=== PATIENT | female | born 1945 | race Two or more races ===

== ENCOUNTER 2022-02-18 08:25 | Inpatient (IN) | payer MEDICARE, OTHER ==
[~2022-02-18] VITALS: Ht 157.5 cm; Wt 44.5 kg
--- NOTE | 2022-02-18 08:35 | NUR ---
TO ER BED 8, MASSIEL FROM [facility] FOR ABNORMAL LABS, BUN 69, SODIUM 160, CDIFF+, AAOX2, BREATHING EVEN AND NON LABORED, CHANGED INTO A GOWN, CONNECTED TO MONITOR. AWAITING MD ORDERS
--- NOTE | 2022-02-18 08:42 | NUR ---
IV ESTABLISHED L AC 20G. LABS AND CULTURES DRAWN AND COLLLECTED AT BEDSIDE
--- NOTE | 2022-02-18 08:45 | NUR ---
COVID ANTIGEN TEST COLLECTED AND SENT AT BEDSIDE
[2022-02-18 08:52] LABS: BASOPHILS # (AUTO) 0.1 K/uL (0.0-0.2); BASOPHILS % (AUTO) 0.4 % (0.0-2.0); EOSINOPHILS % (AUTO) 1.1 % (0.0-6.0); HEMATOCRIT 38 % (33-45); HEMOGLOBIN 11.7 g/dL (11.5-14.8); LYMPHOCYTES # (AUTO) 2.3 K/uL (0.8-4.8); LYMPHOCYTES % (AUTO) 11.9 % (20.0-44.0); MEAN CORPUSCULAR HGB CONC 31 g/dl (31.0-36.0); MEAN CORPUSCULAR VOLUME 88 fL (82-100); MONOCYTES # (AUTO) 1.3 K/uL (0.1-1.30); MONOCYTES % (AUTO) 6.6 % (2.0-12.0); NEUTROPHILS # (AUTO) 15.5 K/uL (1.8-8.9); PLATELET COUNT (AUTO) 647 K/uL (150-450); RED BLOOD CELL COUNT(AUTO) 4.32 MIL/uL (4.0-5.2); WHITE BLOOD COUNT (AUTO) 19.4 K/uL (4.3-11.0)
[2022-02-18 09:00] LABS: CALCIUM, SERUM 8.5 mg/dL (8.5-10.1); CARBON DIOXIDE 24 mmol/L (21-32); CHLORIDE 125 mmol/L (98-107); CREATININE 1.9 mg/dL (0.6-1.3); GLUCOSE 105 mg/dL (74-106); UREA NITROGEN, BLOOD 70 mg/dL (7-18)
[2022-02-18] MEDS ORDERED: IV NS 0.9% 500 ML BAG IV ONE (09:00)
[2022-02-18] MEDS ORDERED: VANC500V PO (09:03)
[2022-02-18] MEDS ORDERED: METO50TA16 PO (09:03)
[2022-02-18] MEDS ORDERED: ATOR20TA PO (09:03)
[2022-02-18] MEDS ORDERED: LOSA100T31 PO (09:03)
[2022-02-18] MEDS ORDERED: LEVE500T9 PO (09:03)
[2022-02-18] MEDS ORDERED: ASPI-1169 PO (09:03)
[2022-02-18] MEDS ORDERED: SERT100T12 PO (09:03)
[2022-02-18] MEDS ORDERED: CLOP75TA15 PO (09:03)
[2022-02-18] MEDS ORDERED: NYST5ORA MM (09:03)
[2022-02-18 09:06] LABS: ALANINE AMINOTRANSFERASE 139 U/L (12-78); ALBUMIN 2.8 g/dL (3.4-5.0); ALKALINE PHOSPHATASE 122 U/L (46-116); ASPARTATE AMINOTRANSFERASE 98 U/L (15-37); BILIRUBIN,DIRECT 0.1 mg/dL (0.0-0.2); BILIRUBIN,TOTAL 0.3 mg/dL (0.2-1.0); SODIUM SERUM 162 mmol/L (136-145); TOTAL PROTEIN, SERUM 7.5 g/dL (6.4-8.2)
--- NOTE | 2022-02-18 09:13 | NUR ---
16 FR COREY CATHETER IN PLACE. 40CC OF URINE OUTPUT. URINE COLLECTED AND SENT TO LAB.
[2022-02-18 09:51] LABS: BILIRUBIN,URINE NEGATIVE (NEGATIVE); COLOR,URINE YELLOW (YELLOW); LEUKOCYTE ESTERASE ,URINE NEGATIVE (NEGATIVE); NITRITE, URINE NEGATIVE (NEGATIVE); PH,URINE 6.5 (5.0-8.0); PROTEIN,URINE 30 mg/dl (NEGATIVE); UGLUCOSE NEGATIVE (NEGATIVE); UROBILINOGEN,URINE 0.2 EU/dL (0.2)
[2022-02-18 10:03] LABS: BACTERIA,URINE 2+ /HPF (None Seen)
--- NOTE | 2022-02-18 10:06 | NUR ---
DR CLIFFORD AT BEDSIDE FOR EVAL
--- NOTE | 2022-02-18 10:30 | NUR ---
COVID POSITIVE PER LAB. DR VINCENT AWARE.
[2022-02-18] MEDS ORDERED: Z GUARD REMEDY 4 OZ OINT TP PRN (12:00)
[2022-02-18] MEDS: METOPROLOL TARTRATE 50 MG TABLET PO SCH ×2 (12:00→20:54)
[2022-02-18] MEDS ORDERED: ONDANSETRON HCL/PF 4 MG/2 ML VIAL IVP PRN (12:00)
[2022-02-18] MEDS ORDERED: HYDROCODONE/APAP 5/325MG TABLET PO PRN (12:00)
[2022-02-18] MEDS ORDERED: ACETAMINOPHEN 325 MG TABLET PO PRN (12:00)
[2022-02-18] MEDS ORDERED: IV NS 0.9% 1,000 ML IV PRN (12:00)
--- NOTE | 2022-02-18 12:49 | NUR ---
ROOM [facility]
--- NOTE | 2022-02-18 12:56 | NUR ---
REPORT GIVEN TO JORGE FOR ADRIÁN
[2022-02-18] MEDS ORDERED: CEFTRIAXONE 1 G in IV D5W 50 ML IV ONE (13:00)
--- NOTE | 2022-02-18 14:00 | NUR ---
ADMISSION RN FOUND PT IN BED, REPORT GIVEN OVER PHONE. PT IS A&OX0, NO SOCIABLE BEHAVIOR. PT COMBATIVE, WITHDRAWING FROM NON PAINFUL STIMULUS. PT PLACED ON THE MONITOR, PROVIDED FRESH LINENS. RN WILL START ADMISSION PROCESS JULIO.
[2022-02-18] MEDS ORDERED: hydrALAZINE HCL IV 20 MG VIAL IV PRN (14:30)
[2022-02-18] MEDS: [UNRECOGNIZED DRUG - OTHER] PO SCH ×3 (15:03→20:55)
[2022-02-18] MEDS: VANCOMYCIN HCL 125 MG/2.5 ML ORAL.SUSP PO SCH ×2 (15:03→18:03)
--- NOTE | 2022-02-18 16:00 | NUR ---
RN NOTES RN INFORMED DR CLIFFORD THAT PT WAS ATTEMPTING TO STRIKE RNMD GAVE ORDERS: APPLY SOFT RESTRAINTS. RN ACKNOWLEDGED AND WILL EXECUTE ORDERS.
--- NOTE | 2022-02-18 19:10 | NUR ---
RN NOTES RECEIVED REPORT FROM MORNING NURSE. PATIENT IN BED CONFUSED. WITH IV ACCESS ON RFA G#22 PATENT FLUSHES WELL. WITH COREY CATHETER CONNECTED TO URINE BAG DRAINING YELLOWISH URINE OUTPUT. WITH FLEXISEAL IN PLACE. PATIENT IS WITH BILATERAL WRIST RESTRAINTS IN PLACE. PATIENT IS PULLING OUT HER IV LINES. ON ISLOTAION DUE TO COVID + AND C-DIFF. VITAL SIGNS TAKEN AND RECORDED. ALL SAFETY MEASURES IN PLACE AT ALL TIMES. HOB ELEVATED. CALL LIGHT WITHIN REACH. BED ON LOWEST POSITION AND LOCKED. WILL CLOSELY MONITOR THE PATIENT
--- NOTE | 2022-02-18 19:15 | NUR ---
RN NOTES PT FOUND SUPINE DISPLAYING NO S/S OF DISTRESS, FLACC = 0 AND BREATHING EVEN AND UNLABORED ON RA. PREVIOUSLY PULLED OUT IV REPLACED ON R FA. FLEXISEAL IN PLACE, RESERVOIR BELOW PATIENT DRAINING BY GRAVITY. COREY CATH RESERVOIR BELOW PATIENT DRAINING BY GRAVITY. BILATERAL SOFT WRISTS APPLIED, PULSES PALPATED AND CAP REFILL < 3 SECONDS BILATERALLY. SBAR AND REPORT GIVEN TO CASE ASSISTANT RN, ALL QUESTIONS ANSWERED. SAFETY MEASURES IN PLACE, BED LOCKED AND IN LOWEST POSITION, SIDE RAILS UPX3, CALL LIGHT WITHIN REACH, BED ALARM ARMED.
[2022-02-18 20:00] VITALS: BP 116/62
[2022-02-18] MEDS: LEVETIRACETAM (250 MG) 250 MG TABLET PO SCH (20:47)
[2022-02-18] MEDS: HEPARIN SODIUM, PORCINE 5000 UNITS/1 ML VIAL SQ SCH (20:50)
[2022-02-18] MEDS: ATORVASTATIN 10 MG TABLET PO SCH (21:25)
[2022-02-19] VITALS: BP 106/68
[2022-02-19] MEDS: VANCOMYCIN HCL 125 MG/2.5 ML ORAL.SUSP PO SCH ×5 (00:10→23:31)
[2022-02-19 04:00] VITALS: BP 108/67
--- NOTE | 2022-02-19 06:50 | NUR ---
RN NOTES PATIENT REMAINS STABLE NO SIGNIFICANT CHANGES IN HEALTH CONDITION THIS SHIFT. STILL WITH IV ON RFA ON CONTINUOS IVF NS @ 100CC/HR. WITH COREY CATHETER CONNECTED TO URINE BAG DRAINING WELL. WITJ FLEXI SEAL IN PLACE. STILL WITH BILATERAL SOFT RESTRAINTS IN PLACE. FREQUENT VISUAL MONITORING RENDERED. ALL DUE MEDS GIVEN ORDERED. WILL ENDORSED TO MORNING SHIFT FOR ADRIÁN.
[2022-02-19 07:08] LABS: BASOPHILS # (AUTO) 0.1 K/uL (0.0-0.2); BASOPHILS % (AUTO) 0.3 % (0.0-2.0); EOSINOPHILS % (AUTO) 0.8 % (0.0-6.0); HEMATOCRIT 35 % (33-45); HEMOGLOBIN 10.7 g/dL (11.5-14.8); LYMPHOCYTES # (AUTO) 2.2 K/uL (0.8-4.8); MEAN CORPUSCULAR HGB CONC 30 g/dl (31.0-36.0); MEAN CORPUSCULAR VOLUME 91 fL (82-100); MONOCYTES # (AUTO) 1.4 K/uL (0.1-1.30); MONOCYTES % (AUTO) 6.7 % (2.0-12.0); NEUTROPHILS # (AUTO) 16.5 K/uL (1.8-8.9); NEUTROPHILS % (AUTO) 81.2 % (43.0-81.0); PLATELET COUNT (AUTO) 549 K/uL (150-450); RED BLOOD CELL COUNT(AUTO) 3.88 MIL/uL (4.0-5.2); WHITE BLOOD COUNT (AUTO) 20.3 K/uL (4.3-11.0)
--- NOTE | 2022-02-19 07:30 | NUR ---
FELT PULLER AM NOTES PT IN BED, PATIENT IN BED CONFUSED. ON ROOM AIR SPO2 96%, RESPIRATION UNLABORED, SR HR 68 ON MONITOR, NO SIGNS OF PAIN OR DISCOMFORT, WITH IV ACCESS ON RFA G#22 PATENT FLUSHES WELL. NS AT 100 ML/HR INFUSING WELL. SITE CLEAR. HAS BILATERAL WRIST RESTRAINTS IN PLACE. RELEASED AND CHECKED CIRCULATION THEN Q 2 HOURS. SEE NURSING FLOWSHEET FOR SKIN ISSUES.ISOLATION PRECAUTION FOR COVID + AND C-DIFF. ON PUREED DIET, FEEDER, SAFETY MEASURES IN PLACE AT ALL TIMES. HOB ELEVATED. CALL LIGHT WITHIN REACH. BED ON LOWEST POSITION AND LOCKED. WILL CLOSELY MONITOR THE PATIENT
[2022-02-19 07:37] LABS: CALCIUM, SERUM 8.4 mg/dL (8.5-10.1); CARBON DIOXIDE 21 mmol/L (21-32); CREATININE 1.6 mg/dL (0.6-1.3); GLUCOSE 93 mg/dL (74-106); MAGNESIUM 3.2 mg/dL (1.8-2.4); PHOSPHORUS 4.3 mg/dL (2.5-4.9); POTASSIUM 3.4 mmol/L (3.5-5.1); UREA NITROGEN, BLOOD 61 mg/dL (7-18)
[2022-02-19 07:53] LABS: CHLORIDE 131 mmol/L (98-107); SODIUM SERUM 166 mmol/L (136-145)
[2022-02-19 08:00] VITALS: BP 142/71
[2022-02-19] MEDS: SERTRALINE HCL 50 MG TABLET PO SCH (08:34)
[2022-02-19] MEDS: ASPIRIN 81 MG TAB.CHEW PO SCH (08:34)
[2022-02-19] MEDS: PANTOPRAZOLE 40 MG TABLET.DR PO SCH (08:35)
[2022-02-19] MEDS: LEVETIRACETAM (250 MG) 250 MG TABLET PO SCH ×2 (08:35→22:21)
[2022-02-19] MEDS: METOPROLOL TARTRATE 50 MG TABLET PO SCH ×2 (08:35→22:21)
[2022-02-19] MEDS: CLOPIDOGREL BISULFATE 75 MG TABLET PO SCH (08:35)
[2022-02-19] MEDS: HEPARIN SODIUM, PORCINE 5000 UNITS/1 ML VIAL SQ SCH ×2 (08:36→22:29)
[2022-02-19] MEDS: [UNRECOGNIZED DRUG - OTHER] PO SCH ×4 (08:52→22:24)
--- NOTE | 2022-02-19 09:30 | NUR ---
RN NOTES DUE MEDS GIVEN
[2022-02-19 11:55] LABS: CHOLESTEROL 105 mg/dL (<200); HDL CHOLESTEROL 30 mg/dL (40-60); LDL 45 mg/dL (0-99); TRIGLYCERIDES 229 mg/dL (30-150)
[2022-02-19 12:00] VITALS: BP 128/71
[2022-02-19] MEDS ORDERED: POTASSIUM CHLORIDE 10 MEQ TABLET.SA PO SCH (12:00)
[2022-02-19] MEDS: ENSURE ENLIVE 237 ML LIQUID (VANILLA) PO SCH ×2 (12:41→16:37)
[2022-02-19] MEDS: LEVOTHYROXINE SODIUM 50 MCG TABLET PO SCH ×2 (14:42→22:20)
[2022-02-19 16:00] VITALS: BP 131/62
[2022-02-19] MEDS: IV 1/2NS 1000 ML 1,000 ML IV PRN (16:36)
--- NOTE | 2022-02-19 19:19 | NUR ---
OFFICE MESSENGER HELPER CLOSING NOTES PATIENT IN BED CONFUSED. RESTING EYES CLOSED. ON ROOM AIR SPO2 92%, RESPIRATION UNLABORED, SR SHERRY 53 ON MONITOR, NO SIGNS OF PAIN OR DISCOMFORT, WITH IV ACCESS ON RFA G#22 PATENT FLUSHES WELL. 1/2 NS AT 100 ML/HR INFUSING WELL. SITE CLEAR. HAS BILATERAL WRIST RESTRAINTS IN PLACE. RELEASED AND CHECKED CIRCULATION Q 2 HOURS. ISOLATION PRECAUTION FOR COVID + AND C-DIFF. ON PUREED DIET, FEEDER, FLEXISEAL IN PLACE WITH 50 ML OUTPUT. COREY CATH WITH IN PLACE, TOTAL OUTPUT 200ML. SAFETY MEASURES IN PLACE AT ALL TIMES. HOB ELEVATED. CALL LIGHT WITHIN REACH. BED ON LOWEST POSITION AND LOCKED. TURNED AND REPOSITIONED Q 2 HOURS. ALL NEEDS MET. WILL ENDORE TO NEXT SHIFT FOR ADRIÁN.
--- NOTE | 2022-02-19 19:48 | NUR ---
SHRIMP CLEANER OPENING NOTES RECEIVED PATIENT IN BED, A/O X1 CONFUSED. ON RA, TOLERATING WELL, NO SOB NOTED AT THIS TIME, ON TELE MONITORING, NOTED WITH IV ACCESS ON RFA G#22 INTACT AND PATENT. WITH COREY CATHETER CONNECTED TO URINE BAG DRAINING YELLOWISH COLORED URINE. WITH FLEXISEAL IN PLACE. PATIENT NOTED WITH BILATERAL WRIST RESTRAINTS IN PLACE. PATIENT IS PULLING OUT HER IV LINES. ON ISOLATION DUE TO COVID + AND C-DIFF. VITAL SIGNS TAKEN AND RECORDED. ALL SAFETY MEASURES IN PLACE AT ALL TIMES. HOB ELEVATED. CALL LIGHT WITHIN REACH. BED ON LOWEST POSITION AND LOCKED. WILL CLOSELY MONITOR THE PATIENT
[2022-02-19 20:00] VITALS: BP 115/52
[2022-02-19] MEDS: ATORVASTATIN 10 MG TABLET PO SCH (22:21)
[2022-02-20] VITALS: BP 147/64
[2022-02-20] MEDS: IV 1/2NS 1000 ML 1,000 ML IV PRN ×2 (03:45→17:34)
[2022-02-20 04:00] VITALS: BP 150/73
[2022-02-20] MEDS: VANCOMYCIN HCL 125 MG/2.5 ML ORAL.SUSP PO SCH ×4 (05:32→23:28)
[2022-02-20 06:51] LABS: BASOPHILS % (AUTO) 0.2 % (0.0-2.0); EOSINOPHILS % (AUTO) 1.4 % (0.0-6.0); HEMATOCRIT 33 % (33-45); LYMPHOCYTES # (AUTO) 2.3 K/uL (0.8-4.8); LYMPHOCYTES % (AUTO) 11.7 % (20.0-44.0); MEAN CORPUSCULAR HGB CONC 30 g/dl (31.0-36.0); MEAN CORPUSCULAR VOLUME 91 fL (82-100); MONOCYTES # (AUTO) 1.4 K/uL (0.1-1.30); MONOCYTES % (AUTO) 7.2 % (2.0-12.0); NEUTROPHILS # (AUTO) 15.4 K/uL (1.8-8.9); NEUTROPHILS % (AUTO) 79.5 % (43.0-81.0); PLATELET COUNT (AUTO) 472 K/uL (150-450); RED BLOOD CELL COUNT(AUTO) 3.66 MIL/uL (4.0-5.2); WHITE BLOOD COUNT (AUTO) 19.3 K/uL (4.3-11.0)
--- NOTE | 2022-02-20 07:23 | NUR ---
SLURRY PLANT OPERATOR CLOSING NOTES PATIENT REMAINS IN BED, A/O X1 CONFUSED. ON RA, TOLERATING WELL, NO SOB NOTED AT THIS TIME, ON TELE MONITORING CURRENTLY READING SHERRY AT 29 BPM, IV ACCESS ON RFA G#22 INTACT AND PATENT. WITH COREY CATHETER CONNECTED TO URINE BAG DRAINING YELLOWISH COLORED URINE. WITH FLEXISEAL IN PLACE. WITH BILATERAL WRIST RESTRAINTS IN PLACE. PATIENT PULLING OUT HER IV LINES. ON ISOLATION DUE TO COVID + AND C-DIFF. VITAL SIGNS TAKEN AND RECORDED. ALL DUE MEDS GIVEN. HOB ELEVATED. CALL LIGHT WITHIN REACH. BED ON LOWEST POSITION AND LOCKED. WILL ENDORSE TO AM SHIFT NURSE.
[2022-02-20 07:34] LABS: ALBUMIN 2.3 g/dL (3.4-5.0); BILIRUBIN,TOTAL 0.2 mg/dL (0.2-1.0); CALCIUM, SERUM 7.9 mg/dL (8.5-10.1); CREATININE 1.3 mg/dL (0.6-1.3); MAGNESIUM 2.8 mg/dL (1.8-2.4); PHOSPHORUS 2.8 mg/dL (2.5-4.9); POTASSIUM 3.4 mmol/L (3.5-5.1); TOTAL PROTEIN, SERUM 6.3 g/dL (6.4-8.2)
[2022-02-20 08:00] VITALS: BP 141/57
[2022-02-20] MEDS: METOPROLOL TARTRATE 50 MG TABLET PO SCH ×2 (09:00→22:09)
[2022-02-20] MEDS: LEVETIRACETAM (250 MG) 250 MG TABLET PO SCH ×2 (10:09→21:02)
[2022-02-20] MEDS: SERTRALINE HCL 50 MG TABLET PO SCH (10:09)
[2022-02-20] MEDS: PANTOPRAZOLE 40 MG TABLET.DR PO SCH (10:09)
[2022-02-20] MEDS: CLOPIDOGREL BISULFATE 75 MG TABLET PO SCH (10:09)
[2022-02-20] MEDS: HEPARIN SODIUM, PORCINE 5000 UNITS/1 ML VIAL SQ SCH ×2 (10:10→21:06)
[2022-02-20] MEDS: ASPIRIN 81 MG TAB.CHEW PO SCH (10:12)
[2022-02-20] MEDS: ENSURE ENLIVE 237 ML LIQUID (VANILLA) PO SCH ×3 (11:10→17:25)
[2022-02-20] MEDS: [UNRECOGNIZED DRUG - OTHER] PO SCH ×4 (11:14→21:02)
[2022-02-20 12:00] VITALS: BP 118/57
[2022-02-20] MEDS ORDERED: POTASSIUM CHLORIDE 20 MEQ POWDER PACKET PO SCH ×2 (15:00→16:30)
[2022-02-20 16:00] VITALS: BP 101/68
--- NOTE | 2022-02-20 19:45 | NUR ---
SPECIAL EVENTS DRIVER OPENING NOTES RECEIVED PATIENT IN BED, A/O X1 CONFUSED. ON RA, TOLERATING WELL, NO SOB NOTED AT THIS TIME, ON TELE MONITORING, NOTED WITH IV ACCESS ON RFA G#22 RUNNING 1/2 NS @ 100/ML. WITH COREY CATHETER CONNECTED TO URINE BAG DRAINING YELLOWISH COLORED URINE. WITH FLEXISEAL IN PLACE. PATIENT NOTED WITH BILATERAL WRIST RESTRAINTS IN PLACE. PATIENT IS PULLING OUT HER IV LINES. ON ISOLATION DUE TO COVID + AND C-DIFF. VITAL SIGNS TAKEN AND RECORDED. ALL SAFETY MEASURES IN PLACE AT ALL TIMES. HOB ELEVATED. CALL LIGHT WITHIN REACH. BED ON LOWEST POSITION AND LOCKED. WILL CLOSELY MONITOR THE PATIENT
[2022-02-20 20:00] VITALS: BP 113/56
--- NOTE | 2022-02-20 20:18 | NUR ---
RN NOTE PT RESTING IN BED, AWAKE ALERT AND RESPONSIVE. CONT IN ROOM AIR, NOT IN RESPI DISTRESS. WITH IV ACCES ON RFA G20, IVF FLUIDS RUNNING 1/2 NS 2 100/HR. DUE MEDS GIVEN. AM/PM CARE DONE. SAFETY MEASURES FOLLOWED.
[2022-02-20] MEDS: ATORVASTATIN 10 MG TABLET PO SCH (21:02)
[2022-02-21] VITALS: BP 104/69
[2022-02-21 04:00] VITALS: BP 118/61
[2022-02-21] MEDS: VANCOMYCIN HCL 125 MG/2.5 ML ORAL.SUSP PO SCH ×4 (05:28→23:03)
[2022-02-21] MEDS: IV 1/2NS 1000 ML 1,000 ML IV PRN ×2 (05:28→15:35)
--- NOTE | 2022-02-21 07:28 | NUR ---
ELECTRIC MELT OPERATOR CLOSING NOTES PATIENT REMAINS IN BED, A/O X1 CONFUSED. ON RA, TOLERATING WELL, NO SOB NOTED AT THIS TIME, ON TELE MONITORING CURRENTLY READING SR AT 67, IV ACCESS ON LFA #20G INTACT AND PATENT. WITH COREY CATHETER CONNECTED TO URINE BAG DRAINING YELLOWISH COLORED URINE. WITH FLEXISEAL IN PLACE. WITH BILATERAL WRIST RESTRAINTS IN PLACE. PATIENT PULLING OUT HER IV LINES. ON ISOLATION DUE TO COVID + AND C-DIFF. VITAL SIGNS TAKEN AND RECORDED. ALL DUE MEDS GIVEN. HOB ELEVATED. CALL LIGHT WITHIN REACH. BED ON LOWEST POSITION AND LOCKED. WILL ENDORSE TO AM SHIFT NURSE.
[2022-02-21 08:00] VITALS: BP 98/53
[2022-02-21] MEDS: ASPIRIN 81 MG TAB.CHEW PO SCH (08:12)
[2022-02-21] MEDS: PANTOPRAZOLE 40 MG TABLET.DR PO SCH (08:12)
[2022-02-21] MEDS: LEVETIRACETAM (250 MG) 250 MG TABLET PO SCH ×2 (08:13→20:04)
[2022-02-21] MEDS: SERTRALINE HCL 50 MG TABLET PO SCH (08:13)
[2022-02-21] MEDS: LEVOTHYROXINE SODIUM 50 MCG TABLET PO SCH (08:13)
[2022-02-21] MEDS: CLOPIDOGREL BISULFATE 75 MG TABLET PO SCH (08:13)
[2022-02-21] MEDS: HEPARIN SODIUM, PORCINE 5000 UNITS/1 ML VIAL SQ SCH ×3 (08:15→20:06)
[2022-02-21] MEDS: ENSURE ENLIVE 237 ML LIQUID (VANILLA) PO SCH ×3 (08:25→17:42)
[2022-02-21] MEDS: METOPROLOL TARTRATE 50 MG TABLET PO SCH ×2 (08:38→21:10)
[2022-02-21] MEDS: [UNRECOGNIZED DRUG - OTHER] PO SCH ×4 (08:50→20:11)
[2022-02-21 12:00] VITALS: BP 103/58
[2022-02-21 15:02] LABS: BASOPHILS # (AUTO) 0.1 K/uL (0.0-0.2); BASOPHILS % (AUTO) 0.6 % (0.0-2.0); EOSINOPHILS % (AUTO) 1.5 % (0.0-6.0); HEMATOCRIT 28 % (33-45); HEMOGLOBIN 8.5 g/dL (11.5-14.8); LYMPHOCYTES # (AUTO) 2.4 K/uL (0.8-4.8); LYMPHOCYTES % (AUTO) 15.8 % (20.0-44.0); MEAN CORPUSCULAR HGB CONC 31 g/dl (31.0-36.0); MEAN CORPUSCULAR VOLUME 91 fL (82-100); MONOCYTES # (AUTO) 1.1 K/uL (0.1-1.30); MONOCYTES % (AUTO) 6.9 % (2.0-12.0); NEUTROPHILS # (AUTO) 11.5 K/uL (1.8-8.9); NEUTROPHILS % (AUTO) 75.2 % (43.0-81.0); PLATELET COUNT (AUTO) 310 K/uL (150-450); RED BLOOD CELL COUNT(AUTO) 3.04 MIL/uL (4.0-5.2); WHITE BLOOD COUNT (AUTO) 15.3 K/uL (4.3-11.0)
[2022-02-21 15:15] LABS: ALBUMIN 1.5 g/dL (3.4-5.0); BILIRUBIN,TOTAL 0.2 mg/dL (0.2-1.0); CALCIUM, SERUM 7.3 mg/dL (8.5-10.1); MAGNESIUM 2.3 mg/dL (1.8-2.4); PHOSPHORUS 1.9 mg/dL (2.5-4.9); POTASSIUM 3.4 mmol/L (3.5-5.1); TOTAL PROTEIN, SERUM 5.3 g/dL (6.4-8.2)
[2022-02-21 16:00] VITALS: BP 123/54
--- NOTE | 2022-02-21 19:30 | NUR ---
SENIOR TRAINING AND DEVELOPMENT REP OPENING NOTES RECEIVED PATIENT IN BED, A/O X0, CONFUSED. ON RA, TOLERATING WELL, NO SIGNS OF ACUTE DISTRESS NOTED AT THIS TIME, ON TELE MONITORING SHOWING SINUS SHERRY WITH HR OF 57. WITH IV ACCESS ON RFA G#22 RUNNING 1/2 NS @ 100/ML. PATIENT NOTED WITH BILATERAL SOFT WRIST RESTRAINTS IN PLACE. WITH COREY CATHETER CONNECTED TO URINE BAG DRAINING YELLOWISH COLORED URINE. WITH FLEXISEAL IN PLACE. ON ISOLATION DUE TO COVID + AND C-DIFF. VITAL SIGNS TAKEN AND RECORDED. ALL SAFETY MEASURES IN PLACE: HOB ELEVATED. CALL LIGHT WITHIN REACH. BED ON LOWEST POSITION AND LOCKED. BED ALARM ON. WILL CLOSELY MONITOR THE PATIENT.
[2022-02-21 20:00] VITALS: BP 120/80
--- NOTE | 2022-02-21 21:15 | NUR ---
RN NOTE PT HAS LOW HR 57. BP IS 120/80. TELE MONITOR SHOWS HER RHYTHM GOES BACK AND FORTH FROM SB TO SR. WITHHELD BP MEDICATION METOPROLOL FOR TONIGHT. WILL CLOSELY MONITOR PT'S VITAL SIGNS.
[2022-02-21] MEDS: ATORVASTATIN 10 MG TABLET PO SCH (21:55)
--- NOTE | 2022-02-21 22:59 | NUR ---
RN NOTE PT IS IN BED, AWAKE. NO SIGNS OF ACUTE DISTRESS NOTED AT THIS TIME. TELE MONITOR SHOWS SR WITH HR OF 76 AT THIS TIME. WILL CONTINUE TO MONITOR.
[2022-02-22] VITALS: BP 142/53
[2022-02-22] MEDS: IV 1/2NS 1000 ML 1,000 ML IV PRN (01:26)
--- NOTE | 2022-02-22 02:30 | NUR ---
RN NOTE PM CARE DONE. LINENS CHANGED.
[2022-02-22 04:00] VITALS: BP 116/56
[2022-02-22] MEDS: HEPARIN SODIUM, PORCINE 5000 UNITS/1 ML VIAL SQ SCH ×3 (05:20→21:37)
[2022-02-22] MEDS: VANCOMYCIN HCL 125 MG/2.5 ML ORAL.SUSP PO SCH ×4 (05:21→23:28)
--- NOTE | 2022-02-22 06:28 | NUR ---
BILLING COORDINATOR CLOSING NOTE NO SIGNIFICANT CHANGES THROUGHOUT THE NIGHT. PT HAS HILARIO BAER. ALL SAFETY MEASURES IMPLEMENTED. WILL ENDORSE TO AM NURSE FOR ADRIÁN.
--- NOTE | 2022-02-22 07:25 | NUR ---
SHIPFITTERS SUPERVISOR OPENING NOTE RECEIVED PT IN BED ASLEEP, EASILY AROUSED. PT IS A/O X0 AND CONFUSED. ON RA, TOLERATING WELL. BREATHING UNLABORED. NO SOB NOTED. NOT IN ANY SIGN OF RESPIRATORY DISTRESS. ON CARDIAC TELE MONITOR WITH CURRENT READING OF SINUS SHERRY, HR 58. ON COREY IN PLACE AND DRAINING WELL. IV ACCESS IN VIRIDIANA MIDLINE INTACT AND PATENT. LFA IV ACCESS G#22 INTACT AND PATENT WITH 1/2 NS INFUSING AT 100ML/HR. SAFETY MEASURES IN PLACE: BED IN LOWEST AND LOCKED POSITION, BED ALARM ON, SIDE RAILS UP X3, AND CALL LIGHT WITHIN REACH. WILL CONTINUE TO MONITOR PT.
[2022-02-22 08:00] VITALS: BP 125/64
[2022-02-22] MEDS: PANTOPRAZOLE 40 MG TABLET.DR PO SCH (08:16)
[2022-02-22] MEDS: ASPIRIN 81 MG TAB.CHEW PO SCH (08:16)
[2022-02-22] MEDS: LEVETIRACETAM (250 MG) 250 MG TABLET PO SCH ×2 (08:16→21:36)
[2022-02-22] MEDS: CLOPIDOGREL BISULFATE 75 MG TABLET PO SCH (08:16)
[2022-02-22] MEDS: LEVOTHYROXINE SODIUM 50 MCG TABLET PO SCH (08:16)
[2022-02-22] MEDS: METOPROLOL TARTRATE 50 MG TABLET PO SCH ×2 (08:17→21:00)
[2022-02-22] MEDS ORDERED: NYSTATIN (PYXIS) 500,000 UNIT/5 ML ORAL.SUSP PO SCH (09:00)
[2022-02-22] MEDS: SERTRALINE HCL 50 MG TABLET PO SCH (09:24)
[2022-02-22] MEDS: ENSURE ENLIVE 237 ML LIQUID (VANILLA) PO SCH ×3 (09:25→17:55)
--- NOTE | 2022-02-22 10:38 | NUR ---
WOUND CARE CONSULT: REVIEWED CHART, NURSING DOCUMENTATION WHICH INDICATES REDNESS TO PERIANAL AREA, PRESENT ON ADMISSION. RECOMMENDATIONS MADE FOR SKIN PROTECTION. DISCUSSED WITH NURSING STAFF. PT HAS RECTAL TUBE. MD IN AGREEMENT WITH PLAN OF CARE.
[2022-02-22 12:00] VITALS: BP 100/58
[2022-02-22] MEDS: NYSTATIN (PYXIS) 500,000 UNIT/5 ML ORAL.SUSP PO SCH ×3 (13:05→21:36)
[2022-02-22 14:11] LABS: HEMOGLOBIN 7.9 g/dL (11.5-14.8)
[2022-02-22 16:00] VITALS: BP 102/68
--- NOTE | 2022-02-22 19:30 | NUR ---
WEB CONTENT & SOCIAL MEDIA MANAGER CLOSING NOTE PT IN BED ASLEEP, EASILY AROUSED. PT IS A/O X0 AND CONFUSED. REORIENTED PT NEEDED. ON RA, TOLERATING WELL. BREATHING UNLABORED. NO SOB NOTED. NOT IN ANY SIGN OF RESPIRATORY DISTRESS. ON CARDIAC TELE MONITOR WITH CURRENT READING OF SINUS RHYTHM, HR 75. ON COREY IN PLACE AND DRAINING WELL. IV ACCESS IN VIRIDIANA MIDLINE AND LFA IV ACCESS G#22 INTACT AND PATENT. ISOLATION IN PLACE. ALL NEEDS ATTENDED. KEPT CLEAN AND COMFORTABLE. SAFETY MEASURES IN PLACE: BED IN LOWEST AND LOCKED POSITION, BED ALARM ON, SIDE RAILS UP X3, AND CALL LIGHT WITHIN REACH. ENDORSED TO CLIENT STRATEGIST NURSE FOR ADRIÁN.
[2022-02-22 20:00] VITALS: BP 92/58
[2022-02-22] MEDS: ATORVASTATIN 10 MG TABLET PO SCH (21:36)
[2022-02-23] VITALS: BP 123/57
[2022-02-23 04:00] VITALS: BP 108/56
[2022-02-23] MEDS: HEPARIN SODIUM, PORCINE 5000 UNITS/1 ML VIAL SQ SCH ×2 (05:52→13:51)
[2022-02-23] MEDS: VANCOMYCIN HCL 125 MG/2.5 ML ORAL.SUSP PO SCH ×3 (05:52→17:15)
[2022-02-23 07:15] LABS: BASOPHILS # (AUTO) 0.1 K/uL (0.0-0.2); BASOPHILS % (AUTO) 0.4 % (0.0-2.0); EOSINOPHILS % (AUTO) 1.5 % (0.0-6.0); HEMATOCRIT 26 % (33-45); HEMOGLOBIN 8.5 g/dL (11.5-14.8); LYMPHOCYTES # (AUTO) 2.2 K/uL (0.8-4.8); LYMPHOCYTES % (AUTO) 16.1 % (20.0-44.0); MEAN CORPUSCULAR HGB CONC 33 g/dl (31.0-36.0); MEAN CORPUSCULAR VOLUME 87 fL (82-100); MONOCYTES # (AUTO) 0.7 K/uL (0.1-1.30); NEUTROPHILS # (AUTO) 10.6 K/uL (1.8-8.9); PLATELET COUNT (AUTO) 320 K/uL (150-450); WHITE BLOOD COUNT (AUTO) 13.7 K/uL (4.3-11.0)
--- NOTE | 2022-02-23 07:30 | NUR ---
RN NOTE RECEIVED PATIENT IN BED RESTING ALERT ORIENTED X0,CONFUSED,ON ROOM AIR O2:99% IV SITE IS ON RIGHT UPPER ARM MIDLINE ,LEFT FOREARM, INTACT PATENT,ON ISOLATION,COREY CATH IN PLACE,RECTAL TUBE IN PLACE,SOFT BILATERAL WRIST RESTRAIN IN PLACE WILL CHECK EVERY15 MINS FOR BLOOD CIRCULATION,AND SKIN BREAKDOWN, SAFETY MEASURE IMPLEMENT,BED IN LOW POSITION AND LOCKED,HEAD OF THE BED ELEVATED,CONTINUE TO MONITOR.
--- NOTE | 2022-02-23 07:30 | NUR ---
RN NOTE WILL ENDORSE CARE OF PATIENT TO AM NURSE. PATIENT CONFUSED, RESTLESS ON BI SOFT WRIST RESTRAINS. REORIENTED PT NEEDED. ON RA, TOLERATING WELL. BREATHING UNLABORED. NO SOB NOTED. ON TELE MONITOR WITH CURRENT READING OF SINUS RHYTHM, HR 71. ON COREY IN PLACE AND DRAINING WELL. ISOLATION IN PLACE. ALL NEEDS ATTENDED. KEPT CLEAN AND COMFORTABLE. SAFETY MEASURES IN PLACE: BED IN LOWEST AND LOCKED POSITION, BED ALARM ON, SIDE RAILS UP X3, AND CALL LIGHT WITHIN REACH. ENDORSE TO AM NURSE FOR ADRIÁN.
[2022-02-23] MEDS: PANTOPRAZOLE 40 MG TABLET.DR PO SCH (07:50)
[2022-02-23 07:51] LABS: CALCIUM, SERUM 7.8 mg/dL (8.5-10.1); CREATININE 0.9 mg/dL (0.6-1.3); POTASSIUM 3.2 mmol/L (3.5-5.1)
[2022-02-23] MEDS: ENSURE ENLIVE 237 ML LIQUID (VANILLA) PO SCH ×3 (07:53→17:01)
[2022-02-23 08:00] VITALS: BP 130/56
[2022-02-23] MEDS: LEVETIRACETAM (250 MG) 250 MG TABLET PO SCH (08:23)
[2022-02-23] MEDS: LEVOTHYROXINE SODIUM 50 MCG TABLET PO SCH (08:23)
[2022-02-23] MEDS: ASPIRIN 81 MG TAB.CHEW PO SCH (08:23)
[2022-02-23] MEDS: CLOPIDOGREL BISULFATE 75 MG TABLET PO SCH (08:24)
[2022-02-23] MEDS: SERTRALINE HCL 50 MG TABLET PO SCH (08:24)
[2022-02-23] MEDS: NYSTATIN (PYXIS) 500,000 UNIT/5 ML ORAL.SUSP PO SCH ×3 (08:25→17:04)
[2022-02-23] MEDS: METOPROLOL TARTRATE 50 MG TABLET PO SCH (08:27)
[2022-02-23] MEDS: POTASSIUM CHLORIDE 20 MEQ POWDER PACKET PO SCH ×2 (10:48→11:40)
[2022-02-23 12:00] VITALS: BP 115/71
[2022-02-23 16:00] VITALS: BP 116/60
--- NOTE | 2022-02-23 18:34 | NUR ---
RN NOTE MD ORDERED DISCHARGE PATIENT TO [facility] CALLED [facility] AND REPORT GIVEN TO JANET SANTO WILL ENDORSE NEXT COMING SHIFT WAITING FOR AMBULANCE.
--- NOTE | 2022-02-23 18:47 | NUR ---
RN NOTE PATIENT REMAINS CONFUSED ON ROOM AIR NO SOB NOT ACUTE DISTRESS NOTED,PATIENT READY FOR DISCHARGE WILL ENDORSE NEXT COMING SHIFT.
--- NOTE | 2022-02-23 20:05 | NUR ---
ambulance here to spanish moss picker patient to go [facility] midline /IV/monitor removed belongings given to the drivers blouse only patient is confused cooperative rectal tube in place cole in plac
== END 2022-02-23 21:19 | DRG 371 ==
LOC: ER 08:31 → TRANSITION 10:28 → MEDSG1 12:53 → TELE1 20:29
PROVIDERS: ATTEND Nurse Practitioner Acute Care
PROC: 05HB33Z Insertion of Infusion Device into Right Basilic Vein, Percutaneous Approach (ICD-10-PCS; principal; 2022-02-21)
DX: A04.72 Enterocolitis due to Clostridium difficile, not specified as recurrent (principal); E43 Unspecified severe protein-calorie malnutrition; N17.0 Acute kidney failure with tubular necrosis; U07.1 COVID-19; G93.41 Metabolic encephalopathy; I69.354 Hemiplegia and hemiparesis following cerebral infarction affecting left non-dominant side; E87.0 Hyperosmolality and hypernatremia; R64 Cachexia; N17.9 Acute kidney failure, unspecified; D75.839 Thrombocytosis, unspecified; E03.9 Hypothyroidism, unspecified; E78.5 Hyperlipidemia, unspecified; E86.0 Dehydration; F32.A Depression, unspecified; G40.909 Epilepsy, unspecified, not intractable, without status epilepticus; N18.9 Chronic kidney disease, unspecified; E83.39 Other disorders of phosphorus metabolism; I12.9 Hypertensive chronic kidney disease with stage 1 through stage 4 chronic kidney disease, or unspecified chronic kidney disease; M19.90 Unspecified osteoarthritis, unspecified site; R13.10 Dysphagia, unspecified; Z91.81 History of falling
CPT/HCPCS: 36415; 71045-TC; 80048-TC; 80053-TC; 80061-TC; 80076-TC; 80202-TC; 81001; 83735-TC; 84100-TC; 84443-TC; 85025-TC; 85027-TC; 85378-TC; 86140-TC; 87040-TC; 87081-TC; 87086-TC; 93307-TC; 93970-TC; 97112-TC; 97530-TC; G0378; J0696; J1644; J3490; J7030; J7040; J7050; J7060

== ENCOUNTER 2022-02-24 18:56 | Emergency (ER) | payer MEDICARE, OTHER ==
[~2022-02-24] VITALS: Ht 162.6 cm; Wt 45.4 kg
[~2022-02-24 18:56] MED LIST: ASPI-1169 PO; ATOR20TA PO; CLOP75TA15 PO; LEVE500T9 PO; LOSA100T31 PO; METO50TA16 PO; NYST5ORA MM; SERT100T12 PO; VANC500V PO
--- NOTE | 2022-02-24 19:20 | NUR ---
TO ER BED 8. [facility] FOR RECTAL TUBE REPLACEMENT. PT POSITIVE FOR COVID AND CDIFF. CONTACT AND COVID PRECAUTIONS IN PLACE. CONNECTED TO MONITOR. AWAITING MD ORDERS
--- NOTE | 2022-02-24 20:11 | NUR ---
RECTAL TUBE INSERTED WITHOUT INCIDENT, PT TOLERATED WELL.
--- NOTE | 2022-02-24 20:12 | NUR ---
PT WILL BE TRANSPORTED BACK TO FACILITY IN 15 MINS VIA [facility].
[2022-02-24 20:24] VITALS: BP 131/80
--- NOTE | 2022-02-24 20:24 | NUR ---
PATIENT BEING TRANSPORTED BACK TO FACILITY VIA AMBULANCE IN STABLE CONDITION, DISCHARGE PAPERWORK GIVEN
--- NOTE | 2022-02-24 20:25 | NUR ---
REPORT GIVEN TO SHAD HOME IMPROVEMENT INSTALLER AT [facility]
--- NOTE | 2022-02-24 20:27 | NUR ---
TRANSPORTATION ARRIVED FOR LEARNING DISABILITIES RESOURCE TEACHER
== END 2022-02-24 20:33 ==
LOC: ER 19:15
DX: U07.1 COVID-19 (principal); B96.89 Other specified bacterial agents as the cause of diseases classified elsewhere; G40.909 Epilepsy, unspecified, not intractable, without status epilepticus; I12.9 Hypertensive chronic kidney disease with stage 1 through stage 4 chronic kidney disease, or unspecified chronic kidney disease; N18.9 Chronic kidney disease, unspecified; E78.5 Hyperlipidemia, unspecified; F32.9 Major depressive disorder, single episode, unspecified; Z86.73 Personal history of transient ischemic attack (TIA), and cerebral infarction without residual deficits; Z79.899 Other long term (current) drug therapy; Z79.82 Long term (current) use of aspirin

== ENCOUNTER 2022-06-26 20:33 | Emergency (ER) | payer MEDICARE, OTHER ==
[~2022-06-26] VITALS: Ht 144.8 cm; Wt 41.7 kg
--- NOTE | 2022-06-26 21:05 | NUR ---
MASSIEL FROM [facility] C/O GLF. PT IS A/O, RR EVEN AND UNLABORED, NO ACUTE DISTRESS NOTED, VSS. WILL CONTINUE TO MONITOR.
--- NOTE | 2022-06-26 21:45 | NUR ---
PATIENT TAKEN TO CT
[2022-06-26 23:00] VITALS: BP 104/62
--- NOTE | 2022-06-27 00:27 | NUR ---
[facility] CALLED FOR TRANSPORT ETA 45-1 HOUR
--- NOTE | 2022-06-27 01:05 | NUR ---
REPORT GIVEN TO BORDER MACHINE OPERATOR AT FACILITY
--- NOTE | 2022-06-27 01:05 | NUR ---
REPORT GIVNE TO EMS AT BEDSIDE
== END 2022-06-27 01:08 | disposition home or self-care (01) ==
LOC: ER 20:34
DX: S00.93XA Contusion of unspecified part of head, initial encounter (principal); I12.9 Hypertensive chronic kidney disease with stage 1 through stage 4 chronic kidney disease, or unspecified chronic kidney disease; R51.9 Headache, unspecified; N18.9 Chronic kidney disease, unspecified; E78.5 Hyperlipidemia, unspecified; F32.9 Major depressive disorder, single episode, unspecified; M19.90 Unspecified osteoarthritis, unspecified site; Z87.440 Personal history of urinary (tract) infections; Z79.899 Other long term (current) drug therapy; W22.8XXA Striking against or struck by other objects, initial encounter; Y93.89 Activity, other specified; Y92.89 Other specified places as the place of occurrence of the external cause; Y99.8 Other external cause status
CPT/HCPCS: 70450-TC; 70486-TC

== ENCOUNTER 2024-12-01 15:28 | Inpatient (IN) | payer MEDICARE, OTHER ==
[~2024-12-01] VITALS: Ht 167.6 cm; Wt 44.9 kg
[2024-12-01 16:09] LABS: BASOPHILS % (AUTO) 0.3 % (0.0-2.0); EOSINOPHILS # (AUTO) 0.4 K/uL (0.0-0.7); EOSINOPHILS % (AUTO) 3.9 % (0.0-6.0); HEMATOCRIT 35 % (33-45); LYMPHOCYTES # (AUTO) 1.9 K/uL (0.8-4.8); LYMPHOCYTES % (AUTO) 19.7 % (20.0-44.0); MEAN CORPUSCULAR HEMOGLOBIN 31 PG (26.0-33.0); MEAN CORPUSCULAR HGB CONC 34 g/dl (31.0-36.0); MEAN CORPUSCULAR VOLUME 89 fL (82-100); MONOCYTES # (AUTO) 0.8 K/uL (0.1-1.30); MONOCYTES % (AUTO) 8.4 % (2.0-12.0); NEUTROPHILS # (AUTO) 6.7 K/uL (1.8-8.9); NEUTROPHILS % (AUTO) 67.7 % (43.0-81.0); PLATELET COUNT (AUTO) 308 K/uL (150-450); RED BLOOD CELL COUNT(AUTO) 3.95 MIL/uL (4.0-5.2); RED CELL DISTRIBUTION WIDTH 13.5 % (11.5-15.0); WHITE BLOOD COUNT (AUTO) 9.8 K/uL (4.3-11.0)
[2024-12-01 16:17] LABS: CALCIUM, SERUM 8.9 mg/dL (8.5-10.1); POTASSIUM 4.7 mmol/L (3.5-5.1)
[2024-12-01 16:23] LABS: INR 1.03 (0.91-1.10); PARTIAL THROMBOPLASTIN TIME 25.9 SEC (24.3-34.3); PROTHROMBIN TIME 10.9 SECS (9.2-11.1)
[2024-12-01] MEDS ORDERED: ATOR80TA PO (16:31)
[2024-12-01] MEDS ORDERED: NUTR250L62 PO (16:33)
[2024-12-01] MEDS ORDERED: IOHEXOL-350 100 ML VIAL IV ONE (16:41)
[2024-12-01] MEDS ORDERED: CT SWABBABLE VALVE TRANS SET 1 EA INFUS.SET MC ONE (16:41)
[2024-12-01] MEDS ORDERED: NUTRITIONAL SUPPLEMENT PO SCH (17:00)
[2024-12-01] MEDS ORDERED: ACETAMINOPHEN 325 MG TABLET PO PRN (17:00)
[2024-12-01] MEDS ORDERED: MORPHINE SULFATE INJ 2 MG/ML DISP.SYRIN IV PRN (17:00)
[2024-12-01] MEDS ORDERED: ONDANSETRON HCL/PF 4 MG/2 ML VIAL IVP PRN (17:00)
[2024-12-01 20:00] VITALS: BP 115/60; TEMP 98.4; O2SAT 98
[2024-12-01] MEDS: LEVETIRACETAM (250 MG) 250 MG TABLET PO SCH (21:39)
[2024-12-01] MEDS: METOPROLOL TARTRATE 50 MG TABLET PO SCH (21:39)
[2024-12-01] MEDS: ATORVASTATIN 40 MG TABLET PO SCH (21:39)
[2024-12-02 04:00] VITALS: BP 95/55; TEMP 98.2; O2SAT 95
[2024-12-02 06:32] LABS: ALBUMIN 2.4 g/dL (3.4-5.0); BILIRUBIN,TOTAL 0.3 mg/dL (0.2-1.0); CALCIUM, SERUM 8.9 mg/dL (8.5-10.1); MAGNESIUM 2.3 mg/dL (1.8-2.4); POTASSIUM 4.5 mmol/L (3.5-5.1); TOTAL PROTEIN, SERUM 6.6 g/dL (6.4-8.2)
[2024-12-02 06:33] LABS: BASOPHILS % (AUTO) 0.2 % (0.0-2.0); EOSINOPHILS # (AUTO) 0.4 K/uL (0.0-0.7); EOSINOPHILS % (AUTO) 4.1 % (0.0-6.0); HEMATOCRIT 34 % (33-45); HEMOGLOBIN 11.3 g/dL (11.5-14.8); LYMPHOCYTES # (AUTO) 2.9 K/uL (0.8-4.8); LYMPHOCYTES % (AUTO) 27.2 % (20.0-44.0); MEAN CORPUSCULAR HEMOGLOBIN 30 PG (26.0-33.0); MEAN CORPUSCULAR HGB CONC 33 g/dl (31.0-36.0); MEAN CORPUSCULAR VOLUME 90 fL (82-100); MONOCYTES % (AUTO) 9.2 % (2.0-12.0); NEUTROPHILS # (AUTO) 6.2 K/uL (1.8-8.9); NEUTROPHILS % (AUTO) 59.3 % (43.0-81.0); PLATELET COUNT (AUTO) 293 K/uL (150-450); RED CELL DISTRIBUTION WIDTH 14.1 % (11.5-15.0); WHITE BLOOD COUNT (AUTO) 10.5 K/uL (4.3-11.0)
[2024-12-02] MEDS: CLOPIDOGREL BISULFATE 75 MG TABLET PO SCH (09:47)
[2024-12-02] MEDS: ASPIRIN 81 MG TAB.CHEW PO SCH (09:48)
[2024-12-02] MEDS: SERTRALINE HCL 50 MG TABLET PO SCH (09:48)
[2024-12-02] MEDS: LOSARTAN POTASSIUM 50 MG TABLET PO SCH (09:49)
[2024-12-02 12:00] VITALS: BP 155/68; TEMP 98.1; O2SAT 98
[2024-12-02 20:00] VITALS: BP 125/70; TEMP 97.9; O2SAT 98
[2024-12-03] VITALS: BP 125/63; TEMP 98.1; O2SAT 97
[2024-12-03 04:00] VITALS: BP 133/68; TEMP 97.9; O2SAT 98
[2024-12-03 08:00] VITALS: BP 168/60; TEMP 97.7; O2SAT 99
[2024-12-03 12:10] VITALS: BP 135/52; TEMP 97.7; O2SAT 96
[2024-12-03 15:40] VITALS: BP 210/60; O2SAT 100
[2024-12-03] MEDS: hydrALAZINE HCL IV 20 MG VIAL IV PRN (15:42)
[2024-12-03 16:09] VITALS: BP 149/52; TEMP 97.5; O2SAT 98
== END 2024-12-03 16:19 | DRG 300 ==
LOC: ER 15:35 → MEDSG1 16:25 → TELE1 12-03 00:04
PROVIDERS: ADMIT Internal Medicine; ATTEND Internal Medicine
DX: I73.89 Other specified peripheral vascular diseases (principal); I69.354 Hemiplegia and hemiparesis following cerebral infarction affecting left non-dominant side; G40.909 Epilepsy, unspecified, not intractable, without status epilepticus; N18.9 Chronic kidney disease, unspecified; I12.9 Hypertensive chronic kidney disease with stage 1 through stage 4 chronic kidney disease, or unspecified chronic kidney disease; D64.9 Anemia, unspecified; E78.5 Hyperlipidemia, unspecified; F32.A Depression, unspecified; I25.10 Atherosclerotic heart disease of native coronary artery without angina pectoris; Z79.899 Other long term (current) drug therapy; F03.90 Unspecified dementia, unspecified severity, without behavioral disturbance, psychotic disturbance, mood disturbance, and anxiety; I70.298 Other atherosclerosis of native arteries of extremities, other extremity
CPT/HCPCS: 36415; 71045-TC; 73206-TC; 80048-TC; 80053-TC; 83735-TC; 84100-TC; 85025-TC; 85730-TC; 87081-TC; 92526; 92611-TC; 93930-TC; 97110-TC; 97112-TC; 97530-TC; G0378; J0360; Q9967